=== PATIENT | male | born 1955 | race Caucasian/White ===

== ENCOUNTER 2017-12-01 08:38 | Day surgery (SDC) | payer MEDICAID, SELFPAY ==
[2017-12-01 09:12] VITALS: BP 146/72; PULSE 52; RESP 16; TEMP 36.7; O2SAT 100; BMI 41.5
--- NOTE | 2017-12-01 09:55 | RAD_ITS ---
STUDY: X-RAY - RIGHT KNEE REASON FOR EXAM: Male, 62 years old. Right knee injection TECHNIQUE: 2 view(s) of the knee. COMPARISON: None. FINDINGS: 2 spot fluoroscopy images of the right knee were obtained after contrast injection. Contrast appears within the joint space. Please see performing physician's report for full details. Total fluoroscopy time of 4 seconds RAD/Fluoro Guided Needle Placement IMPRESSION: As above Electronically Signed: Johnny Montiel DO at 12:25 EDT Tel , Service support ,
--- NOTE | 2017-12-01 09:55 | RAD_ITS ---
STUDY: X-RAY - LEFT KNEE REASON FOR EXAM: Male, 62 years old. Fluoroscopy guided needle placement. TECHNIQUE: 2 view(s) of the knee. COMPARISON: None. FINDINGS: 2 fluoroscopic spot films of the right knee demonstrate a needle entering the intercondylar notch. Contrast is seen in the intercondylar space and medial femorotibial compartment. A second image demonstrates contrast in the patellofemoral space. Please see the procedural report for further details. RAD/Fluoro Guided Needle Placement IMPRESSION: Fluoroscopic-guided needle placement. Electronically Signed: Guanakito Martinez DO at 16:00 EDT Tel [phone], Service support ,
[2017-12-01] MEDS: Bupivacaine 0.5% PF 10 ML VIAL (10:10)
[2017-12-01] MEDS: MethylPREDNISolone Acetate 80 MG/ML Vial (10:10)
[2017-12-01 10:20] VITALS: BP 119/73; BP 146/72; PULSE 56; RESP 16; TEMP 36.3; O2SAT 97
[2017-12-01 10:25] VITALS: BP 122/70; BP 146/72; PULSE 53; RESP 16; O2SAT 97
[2017-12-01 10:30] VITALS: BP 123/79; BP 146/72; PULSE 54; RESP 16; O2SAT 97
[2017-12-01 10:35] VITALS: BP 130/82; BP 146/72; PULSE 52; RESP 16; TEMP 36.6; O2SAT 99
[2017-12-01 10:55] VITALS: BP 146/72
--- NOTE | 2017-12-01 12:26 | OP.PCM_ITS ---
Problem List (1) Primary osteoarthritis of right knee Status: Chronic (2) Primary osteoarthritis of left knee Status: Chronic Report of Operation Date of Procedure: 12/01/17 Pre-Operative Diagnosis: Osteoarthritis of bilateral knee Post-Operative Diagnosis: Osteoarthritis of bilateral knee Surgery/Procedure Performed:: Bilateral knee steroid injection under fluoroscopic guidance Description of Surgical Findings:: PROCEDURE: Bilateral knee intra-articular steroid injection under fluoroscopic guidance PREOPERATIVE DIAGNOSIS: Osteoarthritis of bilateral knee POSTOPERATIVE DIAGNOSIS: Osteoarthritis of bilateral knee ANESTHESIA: MAC COMPLICATIONS: None BLOOD LOSS: Minimal PROCEDURE IN DETAIL: History and physical today was reviewed. Risks and benefits of the procedure were explained. The patient understood, agreed to our procedure, and informed consent was obtained. IV inserted per routine protocol. The patient was taken to the ope rating room, placed in a supine position the bilateral knee was prepped and draped in a sterile fashion using iodine x3 under fluoroscopy guidance on AP as well as lateral view the bilateral knee were visualized the skin and subcutaneous tissue and size approximately 5 cc of 1% lidocaine using a 25-gauge regular needle under direct visualization fluoroscopy on AP view starting on the right knee fo llowed by the left knee using a 22-gauge 3-1/2 inch spinal needle using the medial approach the needle passed through the skin the tip of the needle's maneuver and directed towards the intra-articular space under direct visualization fluoroscopy once the tip of the needle was at the intra-articular space for each knee after negative aspiration for blood positive aspiration of synovial fluid a total of 1 cc of contrast were injected in divided doses between both knees after confirmation of AP as well as lateral view a total of 10 cc of preservative-free 0.25% Marcaine with 80 mg of Depo-Medrol were injected in divided doses between both knees the needles were then removed intact patient experienced no signs or symptoms of intravascular injection patient experienced no paresthesia. The procedure was completed without any apparent difficult, any complication. The patient appeared to tolerate well. ASSESSMENT AND PLAN: This is a 62-year-old male with osteoarthritis of bilateral knees status post bilateral knee intra-articular steroid injection under fluoroscopic guidance. The patient will continue his current medications. The patient will follow in approximately 2 weeks for reevaluation.
== END 2017-12-01 10:50 | disposition home or self-care (01) ==
LOC: SDC 08:39
PROVIDERS: Family Provider Student in an Organized Health Care Education/Training Program; PCP Student in an Organized Health Care Education/Training Program; Referring Provider Anesthesiology Pain Medicine; Visit Provider Anesthesiology Pain Medicine
PROC: 3E0U3GC Introduction of Other Therapeutic Substance into Joints, Percutaneous Approach (ICD-10-PCS; CPT 20610; principal; 2017-12-01 09:50)
DX: M17.0 Bilateral primary osteoarthritis of knee (principal); I10 Essential (primary) hypertension; J44.9 Chronic obstructive pulmonary disease, unspecified; G47.33 Obstructive sleep apnea (adult) (pediatric); M06.9 Rheumatoid arthritis, unspecified; M51.17 Intervertebral disc disorders with radiculopathy, lumbosacral region; M47.897 Other spondylosis, lumbosacral region; M46.96 Unspecified inflammatory spondylopathy, lumbar region; M79.10 Myalgia, unspecified site; Z79.891 Long term (current) use of opiate analgesic; Z79.899 Other long term (current) drug therapy; Z87.891 Personal history of nicotine dependence
CPT/HCPCS: 20610; 76000; 77002; J7120; J3490

== ENCOUNTER → 2020-08-25 09:57 | Outpatient (CLI) | payer MEDICARE, MEDICAID, SELFPAY ==
--- NOTE | 2020-08-25 10:14 | MRI_ITS ---
STUDY: MRI LUMBAR SPINE WITHOUT CONTRAST REASON FOR EXAM: Male, 65 years old. RADICULOPATHY, DDD TECHNIQUE: Standardized fat and water weighted pulse sequences were obtained in the sagittal and axial planes. COMPARISON: None FINDINGS: Normal lumbar lordosis. There is no substantial scoliosis. Normal conus medullaris that terminates at the and 1. L1-2: There is minimal disc space narrowing and endplate spondylosis. There is no significant disc herniation, central canal or foraminal stenosis. Mild facet arthropathy L2-3: There is moderate disc space narrowing and endplates spondylosis. Mild disc osteophyte complex and facet arthropathy with mild central canal stenosis. Mild right and mild left foraminal stenosis. L3-4: There is moderate disc space narrowing and endplates spondylosis. Moderate disc osteophyte complex and mild facet arthropathy with mild central canal stenosis. Mild right and mild left foraminal stenosis. L4-5: There is moderate disc space narrowing and endplates spondylosis and edema. Moderate disc osteophyte complex and facet arthropathy with moderate central canal stenosis. Mild right and moderate left foraminal stenosis. L5-S1: There is moderate disc space narrowing and endplates spondylosis. Moderate disc osteophyte complex and facet arthropathy asymmetric the right with severe right foraminal stenosis. Mild central canal and moderate left foraminal stenosis. Normal visualized sacral ala. MRI/Spine Lumbar (Routine) IMPRESSION: L4/L5: Moderate central canal stenosis. Moderate left foraminal stenosis. L5/S1: Severe right and moderate left foraminal stenosis. Electronically Signed: Zac Layc MD at 13:50 EDT Tel , Service support ,
== END ==
PROVIDERS: PCP Student in an Organized Health Care Education/Training Program; Referring Provider Nurse Practitioner Family; Visit Provider Nurse Practitioner Family
DX: M46.96 Unspecified inflammatory spondylopathy, lumbar region (principal); M51.37 Other intervertebral disc degeneration, lumbosacral region; M54.17 Radiculopathy, lumbosacral region; M47.817 Spondylosis without myelopathy or radiculopathy, lumbosacral region
CPT/HCPCS: 72148

== ENCOUNTER 2021-05-07 09:51 | Day surgery (SDC) | payer MEDICARE, MEDICAID, SELFPAY ==
[2021-05-07 10:18] VITALS: BP 138/68; PULSE 62; RESP 18; TEMP 36.4; O2SAT 98; BMI 42.9
[2021-05-07] MEDS: Lactated Ringers 1,000 ML 15 ML IV (10:25)
--- NOTE | 2021-05-07 12:05 | RAD_ITS ---
STUDY: X-RAY - LUMBAR SPINE REASON FOR EXAM: Male, 66 years old. INSERTION, SPINAL CORD STIM. TECHNIQUE: view(s) of the lumbar spine were obtained. COMPARISON: None FINDINGS: Noted is placement of electrode devices within the spinal canal. Normal lumbar lordosis. There is no substantial scoliosis. There is a normal alignment of the vertebrae. Normal vertebral bodies and endplates. Normal disc space heights. The soft tissue structures are unremarkable. RAD/Lumbar Spine 2 or 3 Views IMPRESSION: Normal x-ray examination of the lumbar spine. Electronically Signed: Warren Mcgill MD at 5:23 EDT ,
[2021-05-07] MEDS: Cefazolin 2 GM in 0.9% Normal Saline 100 ML IV (12:38)
[2021-05-07] MEDS: Lidocaine 2% (20 ml mdv) 20 ML Vial (13:21)
[2021-05-07] MEDS: Bupivacaine 0.25% 30 ML Vial (13:35)
[2021-05-07] MEDS: Bacitracin 500 UNITS/GM PACKET (13:42)
[2021-05-07 14:18] VITALS: BP 112/66; BP 138/68; PULSE 69; RESP 18; TEMP 36.9; O2SAT 97
[2021-05-07 14:25] VITALS: BP 113/83; BP 138/68; PULSE 60; RESP 16; O2SAT 100
[2021-05-07 14:30] VITALS: BP 121/81; BP 138/68; PULSE 65; RESP 16; O2SAT 100
[2021-05-07 14:37] VITALS: BP 111/76; BP 138/68; PULSE 66; RESP 18; TEMP 36.9; O2SAT 99
[2021-05-07 14:54] VITALS: BP 138/68
--- NOTE | 2021-05-07 15:45 | PCM.OPRPT ---
Report of Operation Date of Procedure: 05/07/21 Description of Surgical Findings:: Pre-Operative Diagnosis: Lumbosacral radiculopathy, lumbosacral degenerative disc disease, lumbosacral spinal stenosis Post-Operative Diagnosis: Lumbosacral radiculopathy, lumbosacral degenerative disc disease, lumbosacral spinal stenosis Surgery/Procedure Performed:: 1. Spinal cord stimulator thoracolumbar leads placement x2 #2 spinal cord stimulator Medtronic intellus generator placement #3 spinal cord stimulator generator pocket creation at the right gluteal region #4 spinal cord stimulator programming, 5-intraoperative fluoroscopic interpretation ANESTHESIA: MAC COMPLICATIONS: None BLOOD LOSS: Minimal Implanted device: Spinal cord stimulator lead [id number] lot number [id number], lead #2 [id number] lot number [id number] Medtronic spinal cord stimulator generator intellus serial number [id number] PROCEDURE IN DETAIL: History and physical today was reviewed. Risks and benefits of procedure explained. The patient understood, agreed to procedure, informed consent was obtained. IV inserted per routine protocol. The patient was taken to the operating room, placed in the prone position with a pillow positioned underneath the abdomen. A 2 g of Ancef IV piggyback was infused per anesthesia. The lower back and right gluteal area was prepped and draped in a sterile fashion using iodine x3 Ioban was placed. The C-arm was brought in position for AP view at the T12-L1 vertebral bodies under direct visualization fluoroscopy on a true AP view the T12-L1 interlaminar space was identified skin and subcutaneous tissue and size approximately 10 cc of a mix of 2% lidocaine and 0.25% Marcaine using a 25-gauge regular needle followed by a 25-gauge 3-1/2 inch spinal needle towards the interlaminar space at T12-L1, the skin and subcutaneous tissue were then anesthetized and using an 11-gauge blade was then taken down to the skin and subcutaneous tissue using a 14-gauge 3-1/2 inch Touhy needle provided by the [employer] kit the needle was passed through the skin towards the interlaminar space at T12-L1 and a left paramedian approach the needle was then advanced under direct visualization fluoroscopy towards the interlaminar space at L2-3 band-kh-oyydzeiwqf technique was then carried to air towards the interlaminar space at T11-12 once the tip of the needle was in the epidural space and loss of resistance was encountered to air and after confirmation of AP-- as well as oblique view of the spinal cord stimulator lead was then advanced under direct visualization fluoroscopy to be at the tip of the lead at T8 and the bottom of the lead around mid T10 after confirmation of AP as well as well as lateral view to confirm correct placement of the lead in the posterior compartment of the epidural space the previous procedure was then repeated to the same level on the right parapmedian approach, interlaminar space the second lead was then inserted under direct visualization with fluoroscopy to be at the tip of T8 and mid T10 area the leads were were then connected to the external neurostimulator and patient was then awakened to confirm satisfactory coverage of the painful area once satisfactory coverage was then achieved the stylette of each needle was then removed and the skin and subcutaneous tissue on to the left of the paramedian needles was then taken anesthetized with a total of 10 cc of the previous mixture of 0.25% Marcaine and 2% lidocaine using a 25-gauge regular needle the incision was then taken down through the skin and subcutaneous tissue towards the fascia making sure hemostasis was then maintained via cautery, the spinal cord stimulator leads were then passed through the above incision and secured using the anhor and sutured down with a 2-0 silk to the fascia at that level the spinal cord stimulator leads were then tunneled via a tunneler provided by the [employer] kit towards the previously incised spinal cord stimulator battery at the right gluteal region skin and subcutaneous tissue were anesthetized with approximately 10 cc of a mix of 2% lidocaine and 0.25% Marcaine using a 25 gauge regular needle, skin and subcutaneous tissue was then taken down with the 11-gauge blade hemostasis was maintained with Bovie and direct pressure the incision was then taken down to the fascia and the battery was then secured with the 2-0 silk sutures that were the spinal cord stimulator leads the upper lead was then marked the new until spinal cord stimulator battery was then provided Via [employer] kit the battery was then reattached of the spinal cord stimulator make ensure that the top lead is attached to the top position from 0-7 electrodes and the bottom from 8-15 electrodes once impedance was then checked to be in the proper average number the intellus battery was then inserted into the pocket and impedance with when checked again the pocket was then inspected to confirm hemostasis in place, the intellus battery was then secured to the fascia using a 2-0 silk to the upper eyes of the battery confirming an upward writing of the intellus facing posterior, once complete confirmation the battery was then placed in the position and the the mid paramedian and the gluteal incisions were then closed primarily through a 3-0 Vicryl in a running fashion followed by a 4-0 Vicryl to the skin, hemostasis was then maintained during the procedure the skin was then covered with a Steri-Strips and bacitracin patient was then returned into the supine position in a stable condition and returned to recovery in a stable condition patient experienced no signs or symptoms of intrathecal or intravascular injection patient experienced no paresthesia the procedure was completed without any apparent difficulty any complication the patient appeared to tolerate well, motor as well as sensory function was unchanged from prior to the procedure. ESTIMATED BLOOD LOSS: Minimal less than 25 mL ASSESSMENT AND PLAN: This is a 66-year-old male with lumbosacral radiculopathy lumbosacral degenerative disc disease lumbosacral spinal stenosis status post 1. Spinal cord stimulator thoracolumbar leads placement x2 #2 spinal cord stimulator Medtronic intellus generator placement #3 spinal cord stimulator generator pocket creation at the right gluteal region #4 spinal cord stimulator programming, 5-intraoperative fluoroscopic interpretation patient will continue his current medications a prescription was provided to the patient Keflex 500 mg 1 p.o. every 8 hours for 7 days, as well as Percocet 5-325 mg 1 p.o. every 4 hours as needed for acute postoperative pain #20, postop instruction were given in writing to the patient and his as well as verbally and in writing, patient will follow approximately 1 week for reevaluation.
== END 2021-05-07 23:59 | disposition home or self-care (01) ==
LOC: SDC 09:51 → AC 09:52
PROVIDERS: PCP Student in an Organized Health Care Education/Training Program; Referring Provider Anesthesiology Pain Medicine; Visit Provider Anesthesiology Pain Medicine
PROC: (CPT 63685; principal; 2021-05-07 11:50)
DX: M51.17 Intervertebral disc disorders with radiculopathy, lumbosacral region (principal); J44.9 Chronic obstructive pulmonary disease, unspecified; M48.07 Spinal stenosis, lumbosacral region; I10 Essential (primary) hypertension; Z79.899 Other long term (current) drug therapy; Z87.891 Personal history of nicotine dependence; Z20.822 Contact with and (suspected) exposure to COVID-19
CPT/HCPCS: 63685; 63650; 00300; 72100; 76000; 87426; C1778; C1820; C9803; J7120; J2405

== ENCOUNTER 2021-11-14 07:00 | Observation (INO) | payer MEDICARE, MEDICAID, SELFPAY ==
--- NOTE | 2021-11-05 14:37 | CASEMGMT ---
CARIE MOORE Assessment: TC to pt for initial transition planning/care coordination assessment. RN OSCAR introduced self and role at [facility], pt voices understanding and consents to assessment. Care providers, pharmacy, and demographics verified/updated. Admitting Dx: Rt Total Knee Robotic PCP:Tiffanie Specialists:Lyndsey, ortho; Dominic, ortho; Jorge Luis, pain mgmt Preferred Pharmacy: [facility] Retail Insurance: [facility] [place], MIRIAN Prescription Benefit: yes LW/HPOA: Pt denies having a LW/DPOA and denies need for info regarding AD. LNOK: Lidia Reyes, Living Arrangements: Pt lives with in a single story house with a ramp to enter. Pt reports he is I in ADL's and denies concerns at home. Transportation: Pt drives self and denies concerns with transportation. Pt will transport him to medical appts post surgery. DME/HHC/SNF: Pt does not use AD now but has a walking stick, FWW, cane and polar care. Pt also has a CPAP and will bring in for surgery. Pt denies hx of HHC or SNF stays. Pt states no concerns with going home at time of dc. He states he will do therapy at [facility] out as he did on his other knee. He states this is not set up yet but he needs to call. Encouraged pt to call today to get set up for post surgery. Pt states he will call tomorrow. Pt states no further concerns/needs. CM to follow. Advised pt to ask CM if any further question/concerns/needs arise, voices understanding. Pt Goal: Home with outpt therapy Plan: Home with outpt therapy, pt to call tomorrow to set up eval appt.
[2021-11-07 11:56] LABS: Absolute Lymphocyte Count 1.62 X10^3/uL (0.83-4.51); Absolute Neutrophil Count 5.8 X10^3/uL (2.0-7.7); Basophil# 0.03 X10^3/uL; Basophil% 0.4 % (0-1); Eosinophil# 0.34 X10^3/uL; Hematocrit 43.2 % (40-54); Hemoglobin 13.9 g/dL (13.0-16.5); Lymphocyte # 1.62 X10^3/ul (0.83-4.51); Lymphocyte % 19.3 % (19-41); Mean Corp Hgb Conc 32.2 g/dL (32-36); Mean Corpuscular Hgb 30.1 pg (27.0-32.0); Mean Corpuscular Volume 93.5 fL (80-94); Mean Platelet Vol. 10.6 fl (6.2-12.0); Monocyte# 0.52 X10^3/uL; Monocyte% 6.2 % (0-10); NRBC Flagged by Analyzer 0 % (0-5); Neutrophil # 5.84 X10^3/uL (2.7-7.7); Neutrophil % 69.5 % (47-70); Platelet Count 243 K/mm3 (150-450); RBC Distribution Width CV 13.3 % (11.6-14.6); RBC Distribution Width SD 45.6 fl (35.1-43.9); Red Blood Count 4.62 M/mm3 (4.6-6.2); White Blood Count 8.4 K/mm3 (4.4-11.0)
[2021-11-07 12:20] LABS: Albumin, Serum 4.1 g/dL (3.2-5.0); Anion Gap 5 (5-15); BUN 31 mg/dL (7-18); BUN/Creat Ratio 26.1 RATIO (10-20); Calcium,Total 9.6 mg/dL (8.5-10.1); Chloride 103 mmol/L (98-107); Creatinine, Serum 1.19 mg/dL (0.70-1.30); EST Glomerular Filtration Rate 65 mL/min (>60); Est Glom Filt Rate - Afr Amer 79 mL/min (>60); Glucose 106 mg/dL (74-106); Potassium 4.4 mmol/L (3.5-5.1); Sodium Level 138 mmol/L (136-145)
[2021-11-07 12:26] LABS: Magnesium 2.2 mg/dL (1.6-2.6)
[2021-11-14] VITALS (16 sets, daily range): BP systolic 111–165; BP diastolic 51–93; PULSE 66–93; RESP 16–20; TEMP 36.2–36.9; O2SAT 94–100; BMI 42.6
--- NOTE | 2021-11-14 07:02 | OP.PCM_ITS ---
Report of Operation Date of Procedure: 11/14/21 Pre-Operative Diagnosis: Right knee primary osteoarthritis Post-Operative Diagnosis: Right knee primary osteoarthritis Surgery/Procedure Performed:: Right minimally invasive robotic total knee replacement Description of Surgical Findings:: Stable knee with good patella tracking Surgeon: Elijah Solorio trip rider: Ke Fulton Type of Anesthesia: Spinal Special Medications: 2 g Ancef, 1 g TXA at incision, 1 g TXA closure, 10 mg Decadron, joint cocktail (5 mg Duramorph, 30 mL of 0.5% Ropivicaine, 1000 units of epinephrine, 30 mg of Toradol) Specimen's removed: Bony cuts Estimated Blood Loss (mL): 100 Fluids Replaced: 1000 Description of Procedure: Implants used: 1. [place] size 5 triathlon cruciate retaining distal femoral press-fit component 2. Riccardo size 6 press-fit tritanium tibial baseplate 3. [place] X3 9 mm CS polyethylene 4. Riccardo X3 38 mm asymmetric patella Brief history operative indications: 66-year-old M with history of right knee osteoarthritis with radiographic findings with loss of joint space, osteophyte formation and subchondral sclerosis. Failed conservative measures as mentioned in the H&P. Discussion of total knee arthroplasty as well as risk and benefits were discussed the patient including but not limited to blood loss, DVTs, PEs, neurovascular damage, general risk of anesthesia including loss of life, and stiffness or instability were discussed with patient. Patient demonstrated understanding and was able to sign informed consent. Procedure: On the date of procedure patient's right lower extremity was marked in the preoperative area. The patient was then taken back to the operating room where the patient was placed on the table in the supine position. All bony prominences were identified a well-padded. Anesthesia assumed control of the C-spine and airway and remained controlled throughout the remainder of the procedure. A tourniquet was placed on the right upper thigh and the leg was prepped in a sterile fashion. The surgeon then scrubbed at this time .Upon reentering the room right lower extremity was draped in a standard orthopedic fashion. A timeout was then called and everyone agreed upon the side, the site, the procedure to be performed, patient's identity and antibiotics given. Esmarch bandage was used to exsanguinate the extremity and the tourniquet was placed up to 250 mmHg with the knee in flexion. A midline skin incision was made and sharp dissection was taken down through skin subcutaneous tissue and fat. The standard medial parapatellar incision was made and the patella was subluxed laterally. An Appropriate deep MCL release was done and the fat pad was resected. Our attention was then directed to the patella. The patella was everted and a flat resection was made. The knee was then flexed up in 2 femoral pins were placed inside the incision and 2 tibial pins were placed outside the incision in the medial tibia bicortically. Once this was completed the 2 checkpoints in the femur and tibia were placed. Knee was then flexed up and the bony landmarks were registered. Once this was completed knee was taken through range of motion and manually stressed allowing us to a plan for an appropriate tibial cut. The robotic arm was brought into the field sterilely and checkpoint and saw were registered. Based on the patient's deformity the tibial cut was made in 1 degree of varus. At this time the tensioner was then placed in the joint and ligament tension was checked at 90 degrees and full extension. Based on the patient's ligamentous tension appropriate adjustments were made to the operative plan and ligament releases were done. Once we were happy with our operative plan with balanced flexion and extension gaps our attention was directed to the femur. The robot was brought into the field sterilely and registered. Posterior condylar cuts, anterior chamfer cuts and anterior cuts were appropriately made for a size 5 femur. When these were completed the saws were switched out in the distal femoral and posterior chamfer cuts were made. Protecting the soft tissue throughout this time. A size 6 tibial base plate was selected. the knee was flexed to 90 degrees and the soft tissues and posterior osteophytes were removed from the joint. 40 cc of the periarticular injection was injected into the posterior medial corner of the joint. The appropriate trials were then placed on the femur and tibia. A trial polyethylene was trialed to ensure proper balancing and stability of the knee. The appropriate tibial internal rotation was then marked with a bovie. Our attention was then directed to the patella. The lug holes were drilled and the patella trial was placed. Patellar tracking was checked and deemed appropriate. Once we were happy lug holes were drilled for the femur and trial components were removed. the tibia was subluxed and pinned into place and the keel was punched and drilled appropriately. Final components were verified and opened, and cement was mixed in a vacuum. Kryptiq Simplex cement was used. The wound was copiously irrigated with normal saline. When the cement was ready the components were impacted into place starting with the tibia, femur and finally cementing the patella. The trial poly component was placed and the knee was placed in full extension. All excess cement was removed in the process. Once the cement had cured the tracking, alignment and balance were verified and a size 9 mm CS polyethylene component was placed. Once the final components were placed a 3-minute dilute Betadine lavage was performed followed by an Irrisept lavage was performed and the wound was copiously irrigated with normal saline solution and the periarticular injection was given. The wound was closed in a layer rodriguez fashion using #1 vicryl interrupted sutures for the arthrotomy, 2-0 interrupted Vicryl suture for the subcuticular layer and beka for final skin closure. A sterile compressive dressing was then placed. The patient was then awakened from anesthesia, transferred to the rcorinne and transferred to the PACU for recovery. Post op plan DVT ppx: ASA 81mg BID, thigh high compression stockings Follow up: in office in 2 weeks for wound check PT: to start POD #0 at hospital, outpatient PT should be arranged. Patient be placed on doxycycline postoperatively due to BMI over 40 and increased risk for postoperative infections. My physician assistant boys track coach was a vital part of this case. He was important in appropriate retraction during the case, and protection of soft tissues during bony cuts. His intimate knowledge of the case and my steps aided in safe and expedient completion of the procedure as well as appropriate position of the leg during the case. He was also vital in assisting with closure under my direct supervision. Due to the complexity of this case robotic arm was used to assist in the surgery to improve accuracy and clinical outcomes. Complications No intraoperative complications Admit VTE Documentation VTE Present on Admission: No VTE Mechan Device Prophylaxis: SCD's and Thigh High CHIO Hose VTE Pharm Prophylaxis ordered?: Yes
[2021-11-14] MEDS: Magnesium 1 GM over 15 mins IV (07:44)
[2021-11-14] MEDS: Gabapentin 600 MG Tablet PO (07:45)
[2021-11-14] MEDS: Celecoxib 200 MG Capsule 400 MG PO (07:45)
[2021-11-14] MEDS: Acetaminophen 500 MG Tablet 1000 MG PO ×3 (07:45→21:13)
[2021-11-14] MEDS: Lactated Ringers 1,000 ML 15 ML IV ×2 (07:45→12:19)
--- NOTE | 2021-11-14 08:45 | KNEE_PTH ---
PATIENT: LISA SUE LOC: [id number] U#:[id number] AGE/SX: 66/M ROOM: [facility] RE11/14/[address]: Dr. Elijah Solorio MD : 1955 BED: 1 DIS: 11/15/2021 SPEC #: [id number] RECD: 11/14/21 12:38 STATUS: MARGARITO REQ #: [id number] SUHAS: 11/14/21 08:[address]: Elijah Solorio DEPT: SURGICAL PATHOLOGY RECD BY: Mee Mackenzie ENTERED: 11/15/21 08:20 SP TYPE: TOTAL KNEE OTHR DR: MD Dr. Kris Marte DO Dr. Kathryn Lee, DO Dr. Rohini Kalisetti, MD Breanne Pompey, PA Tissues: Knee, NOS Procedures: Decalcification bone/plaque Surgery Specimen Level IV HEADER OPERATION: ERAS, total knee replacement robotic arm assist PRE-OP DIAGNOSIS: Right knee primary osteoarthritis TISSUE SUBMITTED: Bone and soft tissue, right knee MICROSCOPIC DIAGNOSIS Bone and tissue of right knee, total knee resection: Severe degenerative joint disease. AM:madyson 11/21/2021 MICROSCOPIC DESCRIPTION Slides are reviewed. GROSS DESCRIPTION Received is one container designated bone and soft tissue right knee. The specimen consists of multiple fragments of san-yellow bone measuring in aggregate 17 x 15 x 2 cm. Also in the specimen container are multiple fragments of yellow-white soft tissue measuring in aggregate 2.5 x 2 x 1 cm. A number of bony fragments contain articular surfaces consistent with tibial plateau and femoral condyle and displaying prominent osteophyte formation, eburnation, and bone erosion. Diesel Engine Engineer sections are submitted in two cassettes as follows: 1 - soft tissue, 2 - bone after decalcification. / AM:madyson 11/15/2021 TC:5 CPT: 13753, 61299
[2021-11-14 08:50] LABS: Bedside Glucose 110 mg/dL (74-106)
[2021-11-14] MEDS: TXA 1000mg in NS100 100ml (IVPB at Incision) 660 MG IV (09:25)
[2021-11-14] MEDS: dexAMETHasone 10 MG/ML Vial IV (09:28)
[2021-11-14] MEDS: TXA 1000mg in NS100 100ml (IVPB at Closure) 660 MG IV (10:25)
--- NOTE | 2021-11-14 11:30 | RAD_ITS ---
STUDY: X-RAY - RIGHT KNEE REASON FOR EXAM: Male, 66 years old. Post op -- AP and Lateral xray of operative knee in PACU TECHNIQUE: 2 view(s) of the knee. COMPARISON: Comparison is made with prior study 12/01/2017. FINDINGS: Normal visualized distal femur. Normal visualized proximal tibia and fibula. Normal proximal tibiofibular articulation. The patient is status post total knee replacement. There is good alignment. Postoperative soft tissue changes. RAD/Knee 1 or 2 Views IMPRESSION: Status post total knee replacement. There is good alignment. Postoperative soft tissue changes. Electronically Signed: Keshawn Pena MD at 12:23 EDT ,
[2021-11-14] MEDS: Ensure Surgery 237 ML LIQUID PO ×2 (13:17→18:07)
[2021-11-14] MEDS: Famotidine 20 MG Tablet PO (13:19)
[2021-11-14] MEDS: Multivitamins,Therapeutic Tablet 1 TABLET PO (13:19)
[2021-11-14] MEDS: Aspirin 81 MG TAB.CHEW PO (13:20)
[2021-11-14] MEDS: Senna/Docusate Sodium 1 Tablet 2 TABLET PO (13:20)
[2021-11-14] MEDS: hydroCHLOROthiazide 25 MG Tablet PO (13:24)
--- NOTE | 2021-11-14 13:42 | PN.HOSP_ITS ---
Subjective Subjective Patient underwent a right minimally invasive robotic total knee replacement by Dr. Solorio today. Is currently feeling fine at present. Objective Data Objective Data Vital Signs: Vital Signs Temp Pulse Resp BP Pulse Ox O2 Del Method O2 Flow Rate 36.8 C 66 16 130/76 H 98 Nasal Cannula 4 11/14/21 13:01 11/14/21 13:01 11/14/21 13:01 11/14/21 13:01 11/14/21 13:01 11/14/21 13:01 11/14/21 13:01 Oxygen Flow Rate (L/min) 4 Oxygen Delivery Method Nasal Cannula Weight: 131 kg Body Mass Index (BMI) 42.6 Intake & Output: Intake and Output for Last 24 Hours 11/12/21 11/13/21 11/14/21 23:59 23:59 23:59 Intake Total 1437 / 1437 Balance 1437 / 1437 Lab / Micro Data Result Diagrams: 11/07/21 11:23 11/07/21 11:23 Labs: Laboratory Results - last 24 hr 11/14/21 07:24: POC Glucose 110 H Micro: Microbiology 11/07/21 11:23 Swab (Method) Nasal Screen MRSA/MSSA - Final Radiography Diagnostic Testing: Radiology Impression Knee X-Ray 11/14/21 11:30 IMPRESSION: Status post total knee replacement. There is good alignment. Postoperative soft tissue changes. Electronically Signed: Keshawn Pena MD at 12:23 EDT Reading Location ID and State: [address] [place] [address] , Service support , Physical Exam Const alert and no apparent distress Resp normal respiratory effort, no retractions and no use of accessory muscles Cardio regular rate, regular rhythm, S1 normal heart sound and S2 normal heart sound GI normal to inspection, nondistended, normoactive bowel sounds, soft to palpation, non-tender and non-distended Neuro Sensorium / Orientation: awake and alert Psych affect normal Assessment & Plan Assessment/Plan (1) Primary osteoarthritis of right knee: PLAN: Status post right minimally invasive robotic total knee replacement by Dr. Solorio. Management per orthopedics. PLAN: Plan Chronic conditions * Hypertension: Stable. Continue with HCTZ and lisinopril. * Obstructive sleep apnea: Patient uses home CPAP. * History of PUD: Currently stable. Consider PPI patient has reflux type s ymptoms. * History of hiatal hernia: Unclear the severity. No urgent needs for assessment at this time. * Hyperlipidemia: Continue with statin. VTE prophylaxis: Per orthopedics. Patient currently on aspirin twice daily. Thank you for the consult. The hospitalist service will follow along peripher ally. Charges/Coding Visit Charges Inpatient E&M: 45694 Subs Hosp L2
[2021-11-14] MEDS: 0.9% Saline Lock 10 ML Syringe IV (14:51)
[2021-11-14] MEDS: Ketorolac 15 MG/ML Vial IV (14:51)
[2021-11-14] MEDS: Cefazolin 1 GM/50 ML BAG IV (16:37)
[2021-11-14] MEDS: oxyCODONE 5 MG Tablet PO (19:44)
[2021-11-14] MEDS: Albuterol 2.5 MG/3 ML VIAL.NEB. INHALATION (20:04)
[2021-11-14] MEDS: Atorvastatin Calcium 40 MG Tablet PO (21:14)
[2021-11-15] VITALS (9 sets, daily range): BP systolic 127–152; BP diastolic 79–93; PULSE 62–93; RESP 14–18; TEMP 36.4–36.9; O2SAT 97–100
[2021-11-15] MEDS: Cefazolin 1 GM/50 ML BAG IV (01:14)
[2021-11-15] MEDS: oxyCODONE 5 MG Tablet PO ×4 (01:27→13:28)
[2021-11-15] MEDS: Acetaminophen 500 MG Tablet 1000 MG PO ×2 (05:07→13:27)
[2021-11-15 06:49] LABS: Hematocrit 36.3 % (40-54); Hemoglobin 11.6 g/dL (13.0-16.5); Mean Corpuscular Hgb 29.7 pg (27.0-32.0); Mean Corpuscular Volume 93.1 fL (80-94); Mean Platelet Vol. 10.7 fl (6.2-12.0); Platelet Count 216 K/mm3 (150-450); RBC Distribution Width CV 13.6 % (11.6-14.6); RBC Distribution Width SD 46.3 fl (35.1-43.9); White Blood Count 13.3 K/mm3 (4.4-11.0)
[2021-11-15 07:12] LABS: Anion Gap 9 (5-15); BUN 36 mg/dL (7-18); Calcium,Total 8.8 mg/dL (8.5-10.1); Chloride 106 mmol/L (98-107); Creatinine, Serum 1.09 mg/dL (0.70-1.30); EST Glomerular Filtration Rate 72 mL/min (>60); Est Glom Filt Rate - Afr Amer 87 mL/min (>60); Estimated Creatinine Clearance 66.66 ml/min; Glucose 126 mg/dL (74-106); Potassium 4.4 mmol/L (3.5-5.1); Sodium Level 139 mmol/L (136-145)
[2021-11-15] MEDS: Albuterol 2.5 MG/3 ML VIAL.NEB. INHALATION (07:43)
[2021-11-15] MEDS: Multivitamins,Therapeutic Tablet 1 TABLET PO (08:12)
[2021-11-15] MEDS: Lisinopril 40 MG Tablet PO (08:12)
[2021-11-15] MEDS: Famotidine 20 MG Tablet PO (08:12)
[2021-11-15] MEDS: hydroCHLOROthiazide 25 MG Tablet PO (08:13)
[2021-11-15] MEDS: Doxycycline 100 MG CAPSULE PO (08:13)
[2021-11-15] MEDS: Aspirin 81 MG TAB.CHEW PO (08:13)
[2021-11-15] MEDS: Senna/Docusate Sodium 1 Tablet 2 TABLET PO (08:14)
[2021-11-15] MEDS: Ensure Surgery 237 ML LIQUID PO ×2 (08:15→13:27)
--- NOTE | 2021-11-15 09:42 | CASEMGMT ---
CARIE CM into pt room to discuss CHAVEZ form. Explained CHAVEZ form to patient and patient verbalized understanding. Pt signed CHAVEZ form. Filed original in patient chart and provided a copy to patient. Patient denies further needs.
--- NOTE | 2021-11-15 10:31 | PCM.PN.ORT ---
Subjective Subjective The patient was sitting in bedside chair upon examination. Patient denies any chest pain, shortness of breath, dizziness, lightheadedness, nausea or vomiting, or calf pain. Pain is controlled on medications. No adverse overnight events. Patient overall is doing very well. He had a previous left total knee arthroplasty done by Elijah Solorio in July 2021. He states this knee is going better. He does have a stimulator in his back which does affect his right side. He has tolerated physical therapy. Pain is well controlled. He is managed by pain management Dr. Kang in which she has narcotics at home. Patient does have outpatient physical therapy established. Objective Data Objective Data Vital Signs: Vital Signs Temp Pulse Resp BP Pulse Ox O2 Del Method O2 Flow Rate 97.7 F L 74 16 128/93 H 97 Room Air 4 11/15/21 09:56 11/15/21 09:56 11/15/21 09:56 11/15/21 09:56 11/15/21 09:56 11/15/21 09:56 11/14/21 22:58 Oxygen Flow Rate (L/min) 4 Oxygen Delivery Method Room Air Weight: 131 kg Body Mass Index (BMI) 42.6 Intake & Output: Intake and Output for Last 24 Hours 11/13/21 11/14/21 11/15/21 23:59 23:59 23:59 Intake Total 2136 / 2137 50 / 50 Output Total 2200 / 2200 Balance 2137 / 1637 -2150 / -2150 Lab / Micro Data Result Diagrams: 11/15/21 04:55 11/15/21 04:55 Labs: Laboratory Results - last 24 hr 11/15/21 04:55: WBC 13.3 H, RBC 3.90 L, Hgb 11.6 L, Hct 36.3 L, MCV 93.1, MCH 29.7, MCHC 32.0, RDW Std Deviation 46.3 H, RDW Coeff of Thanh 13.6, Plt Count 216, MPV 10.7 11/15/21 04:55: Sodium 139, Potassium 4.4, Chloride 106, Carbon Dioxide 24.0, Anion Gap 9, BUN 36 H, Creatinine 1.09, Estim Creat Clear Calc 66.66, Est GFR (MDRD) Af Amer 87, Est GFR (MDRD) Non-Af 72, BUN/Creatinine Ratio 33.0 H, Glucose 126 H, Calcium 8.8 Micro: Microbiology 11/07/21 11:23 Swab (Method) Nasal Screen MRSA/MSSA - Final Radiography Diagnostic Testing: Radiology Impression Knee X-Ray 11/14/21 11:30 IMPRESSION: Status post total knee replacement. There is good alignment. Postoperative soft tissue changes. Electronically Signed: Keshawn Pena MD at 12:23 EDT , Physical Exam Narrative Vital signs stable and afebrile. SCDs and CHIO hose are in place bilaterally Patient is able to plantarflex and dorsiflex actively. Sensation is intact to light touch to saphenous, sural, superficial and deep peroneal, and tibial distribution. Dressing is clean dry and intact. Negative Homans bilaterally, negative signs and symptoms of DVT. Const alert, oriented x3 and no apparent distress Assessment & Plan Assessment/Plan (1) Status post total right knee replacement: PLAN: 1. S/P right total knee arthroplasty POD #1 2. Continue Pain Medications: Tylenol, meloxicam oxycodone. Do not take any other nonsteroidal anti-inflammatories while using meloxicam/Mobic. I also discussed with the patient that pain management Dr. Kang's office will manage his pain medications. OARRS was checked today in which he recently on November 06, 2021 received 120 tablets of Percocet 7.5 mg / 325 mg. If he has any issues with pain medications he will contact pain management. 3. DVT Prophylaxis: Take 81 mg aspirin twice daily for 4 weeks postoperatively for DVT prophylaxis. 4. PT/OT: Weightbearing as tolerated with walker 5. H & H: 11.6/36.3, asymptomatic. Postoperative anemia secondary to acute blood loss from surgery without any intra operative complications. 6. Reactive leukocytosis: Currently 13.3, afebrile. Patient did receive Decadron intraoperatively 7. Continue antibiotics postoperatively: Patient is currently on doxycycline for 2 weeks postoperatively due to elevated BMI over 40.0 with increased risk of postoperative infection. I discussed with the patient side effects of this medication which is sensitivity to the sunlight and to take appropriate precautions. Also recommended [id number] probiotic while on the antibiotic. He did voiced understanding agreement. 8. Continue postoperative medical management per medicine: Case was discussed with medicine and they are okay with discharge home 9. Encouraged Incentive Spirometry 10. Disposition: Plan will be for discharge home today as patient is doing well medically, pain is well controlled, and tolerated therapy. Prescriptions will be E scribed to [facility]. Narcotics will be managed by his pain management physician. He does have outpatient physical therapy established. He will follow-up per postop instructions. He will contact her office upon discharge with any concerns or questions. I have reviewed the [place] Automated Rx Reporting System (OARRS) report for this patient for refill pattern and other prescriber involvement as part of the appropriate surveillance for the provision of acute and chronic controlled medications. The report was requested and reviewed on the date of this entry and was considered in the prescribing process. This dictation was created using voice recognition software. Phonetic and/or grammatical errors may exist.
--- NOTE | 2021-11-15 10:36 | PCM.DC ---
Discharge Instructions Diet Discharge Diet: No restrictions Activity Discharge Activity: May Not Drive (No driving for 6 weeks postoperatively) May shower in (days): 1 (Please turn dressing away from water. Okay to get wet as long as dressing is intact to skin.) Ice area for (Minutes): 20 (Every 1-2 hours while awake[address] Please place barrier between the skin and ice pack.) Weight Bearing Status: Weight bearing as tolerated (With walker) Keep extremity elevated above heart level: Operative Extremity Dressing / Incision Call your doctor if your incision/area has: Continuous Slow Oozing, Sudden Increased Bleeding, Increased Pain/ Swelling, Increased Redness and Foul Smelling Discharge Call your doctor if you observe: Fever of 101 or Higher, Coldness, Increased Pain, Numbness or Tingling, Change in Color, Shortness of breath, Chest pain, Calf discomfort and Uncontrolled pain Remove Dressing in: 4 days (Okay to remove on November 19, 2021) Additional Dressing/Incision Instructions:: Follow [facility] Post-op Instructions. Once postoperative dressing has been removed only use gentle soap and water over the incision. Do not use any ointments, Neosporin, salves, alcohol pads over the incision for 6 weeks postoperatively. Do not submerge underwater for 6 weeks postoperatively. Continue with CHIO hose/elastic stockings for 2 weeks postoperatively. May remove at nighttime but needs to be placed back on the leg during the day. Do NOT use alcohol with narcotic pain medication. Do NOT make important decisions while taking narcotic medication. If you have problems with taking your medication (rash, itching, nausea, etc.) call the office at once. Follow Up Care Test Results: Test results from this visit will be discussed in further detail at your follow-up appointment, if applicable. Discharge Plan Admission Admit Date/Time: 11/14/21 07:00 Attending Provider: Elijah Solorio Primary Care Provider: Xenia Moreno Consulting Providers: Benito Kimble ; Tyra Franklin ; Kris Mtz ; Jasmyne Mccarthy Discharge Orders/Prescriptions Prescriptions: New sennosides-docusate sodium [Stool Softener-Stimulant Laxat] 8.6-50 mg Tablet 2 tab PO BID Qty: 0 0RF Rx Instructions: Take until first bowel movement, then as needed famotidine 20 mg Tablet 20 mg PO DAILY Qty: 30 0RF doxycycline monohydrate 100 mg Capsule 100 mg PO BID 13 Days Qty: 26 0RF Rx Instructions: Take for 2 weeks postoperatively aspirin 81 mg Tablet,Chewable 81 mg PO BID Qty: 0 0RF Rx Instructions: Take 81 mg aspirin twice daily for 4 weeks postoperatively for DVT prophylaxis. Continued latanoprost 1 DROP bottle 1 drp Right Eye QHS nabumetone 750 MG tablet 750 mg PO BID acetaminophen 500 MG tablet 500 - 1,000 mg PO Q6H PRN PRN (Reason: Pain) lisinopril 40 MG tablet 40 mg PO DAILY multivitamin with folic acid [Thera] 1 TABLET tablet 1 tab PO DAILY Serevent Diskus 50 mcg/dose Blister With Device 1 inh INHALATION BID hydrochlorothiazide 25 mg tablet 25 mg PO DAILY Label Comments: TAKE 1 TABLET BY MOUTH ONCE DAILY oxycodone-acetaminophen 7.5-325 mg tablet 1 tab PO Q4H PRN PRN (Reason: Pain) Label Comments: TAKE 1 TABLET BY MOUTH 4 TIMES DAILY NEEDED FOR PAIN cyclobenzaprine 5 mg tablet 5 mg PO Q8H PRN PRN (Reason: muscle spasms in neck) Label Comments: TAKE 1 TABLET BY MOUTH EVERY [address] OR ENGAGE IN HEAVY MACHINERY WORK IF FEELING SLEEPY AFTER TAKING THIS PILL atorvastatin 40 mg tablet 40 mg PO QHS Label Comments: TAKE 1 TABLET BY MOUTH AT BEDTIME Referrals / Follow Up: Physical,Therapy [Other] - 11/19/21 Xenia Moreno MD [Primary Care Provider] - Vero Nelson PA [Med Staff - Adv Practice Prof] - 11/28/21 2:30 pm Ke Fulton PA-Stephani [Med Staff - Adv Practice Prof] - Disposition Disposition (needs filled in before D/C Order can be placed): Home, Self Care
--- NOTE | 2021-11-15 10:46 | CASEMGMT ---
Pt denies any homegoing needs. He states he has set up his appt with [facility] outpatient therapy. The initial appt is on FridayNov 19.
== END 2021-11-15 13:40 | disposition home or self-care (01) ==
LOC: SDC 08:44 → MS3 08:44
PROVIDERS: Anesthesiology; Admitting Provider Specialist; PCP Student in an Organized Health Care Education/Training Program; Referring Provider Specialist; Visit Provider Specialist
PROC: 0SRC0JZ Replacement of Right Knee Joint with Synthetic Substitute, Open Approach (ICD-10-PCS; CPT 27447; principal; 2021-11-14 08:15)
DX: M17.11 Unilateral primary osteoarthritis, right knee (principal); M06.9 Rheumatoid arthritis, unspecified; J44.9 Chronic obstructive pulmonary disease, unspecified; Z79.891 Long term (current) use of opiate analgesic; G47.30 Sleep apnea, unspecified; E78.00 Pure hypercholesterolemia, unspecified; I10 Essential (primary) hypertension; Z79.899 Other long term (current) drug therapy; Z96.82 Presence of neurostimulator
CPT/HCPCS: 27447; S2900; 01402; 64447; 36415; 73560; 80048; 82040; 82962; 83735; 85025; 85027; 87081; 88305; 88311; 94640; 96365; 96366; 96375; 97110; 97116; 97162; 97166; 97530; 97535; 99218; 99251; C1776; J7120; A4216; G0378; G0463; J2405; J3475